=== PATIENT | female | born 1960 | race Caucasian/White ===

== ENCOUNTER 2019-07-24 10:06 | Emergency (ER) | payer OTHER ==
--- NOTE | 2019-07-24 10:13 | EDM.PDOC ---
ED HPI GENERAL MEDICAL PROBLEM - General Chief Complaint: Abdominal Pain Stated Complaint: PT LEFT SIDE OF AB Time Seen by Provider: 07/24/19 10:07 Source of Information: Reports: Patient History Limitations: Reports: No Limitations - History of Present Illness INITIAL COMMENTS - FREE TEXT/NARRATIVE: HISTORY AND PHYSICAL: History of present illness: Patient is a 58-year-old female who presents to the emergency room with complaints of left lower abdominal pain which started this morning around 0800. She describes the pain as sharp/pain. Prior to today she had felt well and had no health complaints. Patient denies any fever, chills, headache, change in vision, syncope or near syncope. Denies any chest pain, back pain, shortness of breath or cough. Denies any nausea, vomiting, diarrhea, constipation or dysuria. Has not noted any blood in urine or stool. Denies any chance of and no concerns of STDs. Patient has been eating and drinking appropriately. Patient has no previous history of any GI or conditions. PMH of Type 2 Diabetes and HTN. Review of systems: As per history of present illness and below otherwise all systems reviewed and negative. Past medical history: As per history of present illness and as reviewed below otherwise noncontributory. Surgical history: As per history of present illness and as reviewed below otherwise noncontributory. Social history: See social history for further information Family history: As per history of present illness and as reviewed below otherwise noncontributory. Physical exam: General: Well-developed and well-nourished 58-year-old female. Alert and oriented. Nontoxic-appearing and in no acute distress. HEENT: Atraumatic, normocephalic, pupils equal and reactive bilaterally, negative for conjunctival pallor or scleral icterus, mucous membranes moist, TMs normal bilaterally, throat clear, neck supple, nontender, trachea midline. No drooling or trismus noted. No meningeal signs. No hot potato voice noted. Lungs: Clear to auscultation, breath sounds equal bilaterally, chest nontender. Heart: S1S2, regular rate and rhythm without overt murmur Abdomen: Soft, nondistended, LUQ/LLQ tenderness with palpation. Negative for masses or hepatosplenomegaly. Negative for costovertebral tenderness. Pelvis: Stable nontender. Skin: Intact, warm, dry. No lesions or rashes noted. Extremities: Atraumatic, moves all extremities per self without difficulty or deficits, negative for cords or calf pain. Neurovascular unremarkable. Neuro: Awake, alert, oriented. Cranial nerves II through XII unremarkable. Cerebellum unremarkable. Motor and sensory unremarkable throughout. Exam nonfocal. Notes: Lab work is unremarkable. The CT shows an enlarged right ovary containing cysts. Patient has not had any right sided abdominal pain. This information was shared with the patient and we did discuss a pelvic ultrasound in the future if she does develop pain there. 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 Patient states she has not had any urinary discomfort, difficulty starting her stream or change in bowel or bladder. Dr Dave was involved in this case and agrees this patient just needs follow up. All findings have been shared with the patient. Encouraged her to have follow up with the finding of the right ovary. She states she has not had any pain here at this time. She will follow-up for ultrasound with her CERTIFIED DIABETES EDUCATOR. Her vital signs remained stable and she states her pain is now minimal. Supportive care measures were reviewed and discussed. Voices understanding and is agreeable to plan of care. Denies any further questions or concerns at this time. Diagnostics: CBC, CMP, Lipase, UA, CT abd/pelvis Therapeutics: Toradol, IV fluids Prescription: None Impression: Abdominal Pain Plan: 1. Small frequent fluids to prevent dehydration 2.Tylenol and/or Ibuprofen as needed for pain management. 3. Today's labs and CT were normal with the exception of an enlarged right ovary and cyst. Please follow up with your OBGYN for a pelvic ultrasound for further evaluation of this within the next few weeks. 4. Return to the ED as needed as discussed. Definitive disposition and diagnosis as appropriate pending reevaluation and review of above. left lower quadrant Pain Score (Numeric/FACES): 8 - Related Data Allergies Allergy/AdvReac Type Severity Reaction Status Date / Time codeine Allergy Anxiety Verified 11/08/14 12:48 Home Meds: Home Meds Canagliflozin [Invokana] 100 mg PO DAILY 09/08/14 [History] Enalapril [Vasotec] 10 mg PO DAILY 09/08/14 [History] Glimepiride 4 mg PO BID 09/08/14 [History] Thyroid [[place] Thyroid] 60 mg PO DAILY 09/08/14 [History] metFORMIN HCl [Metformin HCl] 2 tab PO BID 09/08/14 [History] Aspirin [[place] Aspirin] 81 mg PO DAILY 11/08/14 [History] Calcium Carbonate/Vitamin D3 [Caltrate 600 Plus D3 Tablet] 1 tab PO DAILY [History] Fish Oil/Borage/Flax/Om3,6,9 1 [[place] 3-6-9 Complex Softgel] 1 tab PO DAILY [History] Vit No.130/Iron/Folic [ Tablet] 1 tab PO DAILY 11/08/14 [ History] Garlic [Garlique] 1 tab PO DAILY 11/10/14 [History] Dapagliflozin Propanediol [Farxiga] 1 tab PO 07/24/19 [History] Dulaglutide [Trulicity] 1.5 mg SUBCUT 07/24/19 [History] Nystatin/Triamcin [Nystatin-Triamcinolone Cream] 1 dose TOP TID 07/24/19 [ History] Past Medical History Other HEENT History: wears glasses Other Cardiovascular History: hx DVT to leg in 2001 Other Dermatologic History: hx exc of abscess to rt leg - Past Surgical History Other HEENT Surgeries/Procedures: hx ear surgery as a child ED ROS GENERAL - Review of Systems Review Of Systems: Comprehensive ROS is negative, except as noted in HPI. ED EXAM, GI/ABD - Physical Exam Exam: See Below (See dictation) Course - Vital Signs Last Recorded V/S: Last Vital Signs Temp 96.9 F 07/24/19 10:18 Pulse 70 07/24/19 11:17 Resp 14 07/24/19 11:17 BP 130/72 07/24/19 11:17 Pulse Ox 98 07/24/19 11:17 - Orders/Labs/Meds Orders: Active Orders 24 hr Category Date Time Status CULTURE URINE [RM] Stat Lab 07/24/19 11:45 Received Labs: Laboratory Tests 07/24/19 07/24/19 07/24/19 Range/Units 10:34 10:34 11:45 WBC 9.58 (4.0-11.0) K/uL RBC 4.40 (4.30-5.90) M/uL Hgb 12.3 (12.0-16.0) g/dL Hct 38.9 (36.0-46.0) % MCV 88.4 (80.0-98.0) fL MCH 28.0 (27.0-32.0) pg MCHC 31.6 (31.0-37.0) g/dL RDW Std Deviation 45.1 (28.0-62.0) fl RDW Coeff of Jose A 14 (11.0-15.0) % Plt Count 255 (150-400) K/uL MPV 10.90 (7.40-12.00) fL Neut % (Auto) 43.6 L (48.0-80.0) % Lymph % (Auto) 44.2 H (16.0-40.0) % Kay % (Auto) 7.6 (0.0-15.0) % Eos % (Auto) 4.3 (0.0-7.0) % Baso % (Auto) 0.3 (0.0-1.5) % Neut # (Auto) 4.2 (1.4-5.7) K/uL Lymph # (Auto) 4.2 H (0.6-2.4) K/uL Kay # (Auto) 0.7 (0.0-0.8) K/uL Eos # (Auto) 0.4 (0.0-0.7) K/uL Baso # (Auto) 0.0 (0.0-0.1) K/uL Nucleated RBC % 0.0 /100WBC Nucleated RBCs # 0 K/uL Sodium 138 (136-145) mmol/L Potassium 4.3 (3.5-5.1) mmol/L Chloride 101 (98-107) mmol/L Carbon Dioxide 27.2 (21.0-32.0) mmol/L BUN 21 H (7.0-18.0) mg/dL Creatinine 0.7 (0.6-1.0) mg/dL Est Cr Clr Drug Dosing 76.57 mL/min Estimated GFR (MDRD) > 60.0 ml/min Glucose 120 H (74-106) mg/dL Calcium 9.5 (8.5-10.1) mg/dL Total Bilirubin 0.4 (0.2-1.0) mg/dL AST 15 (15-37) IU/L ALT 20 (14-63) IU/L Alkaline Phosphatase 59 (46-116) U/L Total Protein 7.1 (6.4-8.2) g/dL Albumin 3.7 (3.4-5.0) g/dL Globulin 3.4 (2.6-4.0) g/dL Albumin/Globulin Ratio 1.1 (0.9-1.6) Lipase 129 (73-393) U/L Urine Color YELLOW Urine Appearance SLT CLOUDY Urine pH 6.0 (5.0-8.0) Ur Specific [place] 1.010 (1.001-1.035) Urine Protein NEGATIVE (NEGATIVE) mg/dL Urine Glucose (UA) >=1000 (NEGATIVE) mg/dL Urine Ketones NEGATIVE (NEGATIVE) mg/dL Urine Occult Blood NEGATIVE (NEGATIVE) Urine Nitrite NEGATIVE (NEGATIVE) Urine Bilirubin NEGATIVE (NEGATIVE) Urine Urobilinogen 0.2 (<2.0) EU/dL Ur Leukocyte Esterase SMALL H (NEGATIVE) Urine RBC 0-2 (0-2/HPF) Urine WBC 0-2 (0-5/HPF) Ur Epithelial Cells MODERATE (NONE-FEW) Urine Bacteria FEW (NEGATIVE) Meds: Medications Discontinued Medications Generic Name Dose Route Start Last Admin Trade Name Freq PRN Reason Stop Dose Admin Sodium Chloride 1,000 mls @ 999 mls/hr 07/24/19 10:17 07/24/19 10:39 Normal Saline IV 07/24/19 11:17 999 mls/hr STAT ONE Administration Iopamidol 100 ml 07/24/19 12:06 07/24/19 12:09 Isovue Multipack-370 (76%) IVPUSH 07/24/19 12:07 100 ml ONETIME STA Administration Ketorolac Tromethamine 30 mg 07/24/19 10:17 07/24/19 10:39 Toradol IVPUSH 07/24/19 10:18 30 mg ONETIME ONE Administration Departure - Departure Time of Disposition: 12:27 Disposition: Home, Self-Care 01 Clinical Impression: Abdominal pain Qualifiers: Abdominal location: left lower quadrant Qualified Code(s): R10.32 - Left lower quadrant pain - Discharge Information Instructions: Abdominal Pain, Adult, [id number] Referrals: Eduardo Kee MD [Primary Care Provider] - Forms: ED Department Discharge Additional Instructions: The following information is given to patients seen in the emergency department who are being discharged to home. This information is to outline your options for follow-up care. We provide all patients seen in our emergency department with a follow-up referral. The need for follow-up, as well as the timing and circumstances, are variable depending upon the specifics of your emergency department visit. If you don't have a primary care physician on staff, we will provide you with a referral. We always advise you to contact your personal physician following an emergency department visit to inform them of the circumstance of the visit and for follow-up with them and/or the need for any referrals to a consulting specialist. The emergency department will also refer you to a specialist when appropriate. This referral assures that you have the opportunity for follow-up care with a specialist. All of these measure are taken in an effort to provide you with optimal care, which includes your follow-up. Under all circumstances we always encourage you to contact your private physician who remains a resource for coordinating your care. When calling for follow-up care, please make the office aware that this follow-up is from your recent emergency room visit. If for any reason you are refused follow-up, please contact the [facility] Emergency Department at and asked to speak to the emergency department charge nurse. [facility] [address] [place] [id number] [facility] [address] [place] [id number] 1. Small frequent fluids to prevent dehydration 2.Tylenol and/or Ibuprofen as needed for pain management. 3. Today's labs and CT were normal with the exception of an enlarged right ovary and cyst. Please follow up with your OBGYN for a pelvic ultrasound for further evaluation of this within the next few weeks. 4. Return to the ED as needed as discussed. Sepsis Event Note - Focused Exam Vital Signs: Vital Signs Temp Pulse Resp BP Pulse Ox 07/24/19 11:17 70 14 130/72 98 07/24/19 10:18 96.9 F 86 22 H 131/80 100 Date Exam was Performed: 07/24/19 Time Exam was Performed: 12:28 - My Orders Last 24 Hours: My Active Orders 07/24/19 11:45 CULTURE URINE [RM] Stat - Assessment/Plan Last 24 Hours: My Active Orders 07/24/19 11:45 CULTURE URINE [RM] Stat
[2019-07-24] MEDS ORDERED: Ketorolac 30 MG/ML SDV IVPUSH ONE (10:17)
[2019-07-24] MEDS ORDERED: Sodium Chloride 0.9% 1,000 ML IV ONE (10:17)
[2019-07-24 11:05] LABS: BLOOD UREA NITROGEN,BUN 21 mg/dL (7.0-18.0); CARBON DIOXIDE,CO2 27.2 mmol/L (21.0-32.0); CHLORIDE,CL 101 mmol/L (98-107); GLUCOSE RANDOM 120 mg/dL (74-106); LIPASE 129 U/L (73-393); POTASSIUM,K 4.3 mmol/L (3.5-5.1); SODIUM,NA 138 mmol/L (136-145)
[2019-07-24] MEDS ORDERED: Iopamidol 755 MG/ML 500 ML Multipack Bottle IVPUSH STA (12:06)
--- NOTE | 2019-07-24 12:11 | CT ---
CT abdomen and pelvis Technique: Multiple axial sections were obtained from above the dome of the diaphragm inferiorly through the pubic symphysis. Intravenous contrast was utilized. No oral contrast has been given. Comparison: No previous CT abdomen or pelvis exam. Findings: Right ovary is enlarged containing cysts as well as possible solid abnormalities. This finding measures about 7.5 cm. Ultrasound will be recommended to further evaluate. IUD is present within the endometrial cavity. Left ovary is seen measuring 3.4 cm. Dilated extrarenal pelves noted within both kidneys. Right ureter is slightly prominent in size but no etiology for this finding is seen on this exam. This may be chronic. 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 Visualized lung bases show nothing acute. Liver contains no focal parenchymal abnormality. Spleen appears within normal limits. Adrenal glands show no nodule. Pancreas appears within normal limits. Gallbladder contains no calcified gallstones. Aorta shows no aneurysm with mild atherosclerotic change. No retroperitoneal adenopathy or mesenteric abnormalities are seen. No additional pelvic abnormality is noted. Appendix is not visualized with certainty. Scoliosis and degenerative change noted within the spine. Impression: 1. Enlarged right ovary containing cysts. Recommend pelvic ultrasound to further evaluate. 2. Dilated extrarenal pelvis within both kidneys with dilated right ureter down to the bladder. No etiology is seen for the dilated ureter and this may be chronic. 3. 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 4. Other findings as noted above believed to be incidental and not acute. Diagnostic code #3 This report was dictated in MDT
[2019-07-24 12:40] VITALS: BP 125/78; PULSE 80
== END 2019-07-24 12:41 | disposition home or self-care (01) ==
LOC: MW.ED 10:06
DX: R10.32 Left lower quadrant pain (principal); E11.9 Type 2 diabetes mellitus without complications; I10 Essential (primary) hypertension; Z88.5 Allergy status to narcotic agent; Z79.82 Long term (current) use of aspirin; Z79.84 Long term (current) use of oral hypoglycemic drugs; Z79.899 Other long term (current) drug therapy
CPT/HCPCS: 36415; 74177; 80053; 81001; 83690; 85025; 87086; 96361; 96374; 99284; J1885; J7030; Q9967; 99283

== ENCOUNTER 2021-08-03 14:36 | Emergency (ER) | payer OTHER ==
[2021-08-03] MEDS ORDERED: Sodium Chloride 0.9% 2.5 ML Syringe FLUSH PRN (15:53)
[2021-08-03] MEDS ORDERED: Sodium Chloride 0.9% 10 ML Syringe FLUSH PRN (15:53)
[2021-08-03 17:02] LABS: BLOOD UREA NITROGEN,BUN 23 mg/dL (7.0-18.0); CARBON DIOXIDE,CO2 19.6 mmol/L (21.0-32.0); CHLORIDE,CL 93 mmol/L (98-107); GLUCOSE RANDOM 157 mg/dL (74-106); LIPASE 43 U/L (73-393); POTASSIUM,K 5.1 mmol/L (3.5-5.1); SODIUM,NA 127 mmol/L (136-145)
[2021-08-03] MEDS ORDERED: Iopamidol 755 MG/ML 500 ML Multipack Bottle IVPUSH STA (18:11)
[2021-08-03] MEDS ORDERED: Sodium Chloride 0.9% 1,000 ML IV ONE (20:42)
[2021-08-03] MEDS ORDERED: cefTRIAXone 2 GM in Sodium Chloride 0.9% 100 ML IV ONE (23:32)
[2021-08-03] MEDS ORDERED: cefTRIAXone 2 GM/50 ML BAG ONE (23:39)
[2021-08-03] MEDS ORDERED: cefTRIAXone 2 GM in Premix Bag 1 BAG IV ONE (23:42)
[2021-08-03] MEDS ORDERED: Sodium Chloride 0.9% 500 ML IV SCH (23:45)
[2021-08-04 00:46] VITALS: BP 119/69; PULSE 112
== END 2021-08-04 01:12 | disposition home or self-care (01) ==
LOC: MW.ED 14:36
DX: C56.1 Malignant neoplasm of right ovary (principal); C78.6 Secondary malignant neoplasm of retroperitoneum and peritoneum; R18.0 Malignant ascites; D50.9 Iron deficiency anemia, unspecified; Z88.5 Allergy status to narcotic agent; Z79.82 Long term (current) use of aspirin; Z79.84 Long term (current) use of oral hypoglycemic drugs
CPT/HCPCS: 36415; 49083; 74177; 80053; 82945; 83690; 84157; 85025; 87070; 87205; 89050; 96365; 99284; J0696; J3490; J7030; J7040; Q9967

== ENCOUNTER 2024-03-27 06:12 | Emergency (ER) | payer OTHER ==
[2024-03-27] MEDS: Lidocaine 4% 1 each Patch TOP ONE (06:33)
[2024-03-27 08:24] VITALS: BP 113/77; PULSE 74
== END 2024-03-27 08:24 | disposition home or self-care (01) ==
LOC: MW.ED 06:12
DX: M79.602 Pain in left arm (principal); M25.512 Pain in left shoulder; M54.12 Radiculopathy, cervical region; I10 Essential (primary) hypertension; E11.9 Type 2 diabetes mellitus without complications; Z86.73 Personal history of transient ischemic attack (TIA), and cerebral infarction without residual deficits; Z79.82 Long term (current) use of aspirin; Z79.84 Long term (current) use of oral hypoglycemic drugs; Z79.899 Other long term (current) drug therapy; Z88.5 Allergy status to narcotic agent
CPT/HCPCS: 70450; 72125; 73030; 93005; 99284; A9270